=== PATIENT | female | born 1960 | race Caucasian/White ===

== ENCOUNTER 2023-05-14 15:17 | Emergency (ER) | payer OTHER ==
[~2023-05-14] VITALS: Ht 167.6 cm; Wt 80.7 kg
[2023-05-14] MEDS ORDERED: LEVO-T75 MCG PO (15:36)
== END 2023-05-14 18:45 | disposition home or self-care (01) ==
LOC: ER 15:17
DX: H61.21 Impacted cerumen, right ear (principal); H72.91 Unspecified perforation of tympanic membrane, right ear

== ENCOUNTER 2023-05-15 17:11 | Emergency (ER) | payer OTHER ==
[~2023-05-15] VITALS: Ht 175.3 cm; Wt 77.1 kg
[~2023-05-15 17:11] MED LIST: LEVO-T75 MCG PO
== END 2023-05-15 18:33 | disposition home or self-care (01) ==
LOC: ER 17:11
DX: H60.91 Unspecified otitis externa, right ear (principal)

== ENCOUNTER 2023-05-20 17:12 | Emergency (ER) | payer OTHER ==
[~2023-05-20] VITALS: Ht 177.8 cm; Wt 76.2 kg
== END 2023-05-20 19:55 | disposition home or self-care (01) ==
LOC: ER 17:12
DX: H61.21 Impacted cerumen, right ear (principal)